=== PATIENT | female | born 1970 | race Caucasian/White ===

== ENCOUNTER → 2017-07-16 | Outpatient (CLI) | payer BC ==
[~2017-07-16] MED LIST: IOHEXOL 240 MG/ML 50ML VIAL. ONE; IOHEXOL 300 MG/ML 75 ML VIAL. IV ONE
[2017-07-16 08:50] LABS: ALBUMIN 3.7 g/dL (3.4-5.0); CALCIUM 9.3 mg/dL (8.5-10.1); CREATININE 0.9 mg/dL (0.6-1.0); GFR 67.4; POTASSIUM 4.2 mmol/L (3.5-5.1); TOTAL BILIRUBIN 0.3 mg/dL (0.2-1.0); TOTAL PROTEIN 7.4 g/dL (6.4-8.2)
[2017-07-16 09:03] LABS: BASO % 0 % (0-3); EOS % 0 % (0-3); HEMATOCRIT 43.2 % (36.0-47.0); HEMOGLOBIN 14.9 g/dL (12.0-15.5); LYMPH % 13 % (24-48); MEAN CORPUSCULAR HEMOGLOBIN 31 pg (25-35); MEAN CORPUSCULAR HGB CONC 34 g/dL (31-37); MEAN CORPUSCULAR VOLUME 90 fL (79-100); MONO # 0.3 x10^3/uL (0.0-1.1); MONO % 4 % (0-9); NEUT # 6.9 x10^3uL (1.8-7.7); NEUT % 84 % (31-73); PLATELET COUNT 323 x10^3/uL (140-400); RED BLOOD COUNT 4.79 x10^6/uL (3.50-5.40); RED CELL DISTRIBUTION WIDTH 13.4 % (11.5-14.5); WHITE BLOOD COUNT 8.3 x10^3/uL (4.0-11.0)
--- NOTE | 2017-07-16 10:09 | RAD ---
INDICATION: BRAIN MASS, STAGING COMPARISON: None. TECHNIQUE: Axial CT images were obtained through the chest, abdomen and pelvis with intravenous contrast. FINDINGS: Chest: Sub-4 mm nodule left lung base. Mild linear opacities lower lungs could be scarring or atelectasis. There is also a suspected sub-4 mm nodule right upper lung. There are couple of additional sub-4 mm right lower lung nodules. There is some motion which obscures portions of the thoracic aorta. The ascending thoracic aorta measures up to approximately 3.5 cm with descending measuring approximately 2 cm. Abdomen and pelvis: No abdominal aortic aneurysm. No intrahepatic bile duct dilation or definite mass. Small fat-containing umbilical hernia. No peripancreatic edema. Spleen unremarkable. No hydronephrosis. Urinary bladder is partially distended at time of exam. Uterus is visualized. Appendix does not appear grossly inflamed. No dilated loops of bowel suggest obstruction. Mild scoliotic curvature of the spine with degenerative changes. This includes degenerative disc disease with disc protrusions and osteophyte formation as well as facet hypertrophy. IMPRESSION: No definite solid organ mass to suggest metastasis. Multiple tiny pulmonary nodules measuring less than 4 mm. This is a commonly seen finding but follow-up will be needed in a few months given the patient's history. PQRS Compliance Statement: One or more of the following individualized dose reduction techniques were utilized for this examination: 1. Automated exposure control 2. Adjustment of the mA and/or kV according to patient size 3. Use of iterative reconstruction technique
[2017-07-16 15:15] LABS: THYROID STIM HORMONE (TSH) 0.751 uIU/mL (0.358-3.740)
== END | disposition home or self-care (01) ==
LOC: CT 08:06
PROVIDERS: ATTEND Neurological Surgery
DX: Z01.818 Encounter for other preprocedural examination (principal); G93.9 Disorder of brain, unspecified; R91.8 Other nonspecific abnormal finding of lung field; K42.9 Umbilical hernia without obstruction or gangrene; N32.89 Other specified disorders of bladder; M41.80 Other forms of scoliosis, site unspecified; R79.89 Other specified abnormal findings of blood chemistry
CPT/HCPCS: 36415; 71260; 74177; 80053; 80061; 84443; 85025; Q9966; Q9967

== ENCOUNTER → 2017-08-11 | Outpatient (CLI) | payer BC ==
--- NOTE | 2017-08-11 11:23 | RAD ---
CT head without contrast History: Double vision for one week, brain tumor removed5 during 2017. Comparison: MR brain [facility] 07/21/2017. Procedure: Axial images are obtained of the head from the skull base through the vertex without IV contrast. One or more of the following individualized dose reduction techniques were utilized for the study: Automated exposure control Adjustment of mA and/or kV according to patient's size Use of iterative reconstruction technique. Findings: There has been interval left occipital craniectomy and mesh cranioplasty. Surgical bed demonstrates expected postoperative volume loss. Evaluation for residual mass is limited. No significant mass effect is seen. Superficial/posterior to the cranioplasty site, there is a collection of apparent CSF attenuation fluid measuring about 4 x 1.5 cm in maximum axial dimension. The lateral and third ventricles appear appropriate. There is mild enlargement of fourth ventricle, thought to be compensatory to the postoperative change. No mass-effect, midline shift, acute hemorrhage or obvious acute infarction is identified. Basilar cisterns are patent. Bone windows demonstrate no significant calvarial abnormality. The visualized paranasal sinuses appear clear. Impression: 1. Postoperative changes of the left posterior fossa with resection of cerebellar mass and left occipital craniectomy and mesh cranioplasty. 2. There is CSF attenuation fluid collection noted posterior to the cranioplasty mesh, nonspecific, but might represent pseudomeningocele. 3. No acute intracranial hemorrhage is identified.
== END | disposition home or self-care (01) ==
LOC: CT 10:28
PROVIDERS: ATTEND Neurological Surgery
DX: H53.2 Diplopia (principal); G93.9 Disorder of brain, unspecified; Z98.890 Other specified postprocedural states; Z85.841 Personal history of malignant neoplasm of brain
CPT/HCPCS: 70450

== ENCOUNTER 2017-08-28 11:34 | Emergency (ER) | payer BC ==
[2017-08-28] MEDS ORDERED: IV NORMAL SALINE 1,000ML 1,000 ML IV ONE (11:45)
[2017-08-28 11:52] VITALS: BP 120/82
[2017-08-28] MEDS ORDERED: IOHEXOL 300 MG/ML 75 ML VIAL. IV ONE (12:00)
--- NOTE | 2017-08-28 12:28 | RAD ---
EXAM: CT ANGIOGRAPHY OF THE CHEST WITH AND WITHOUT INTRAVENOUS CONTRAST. HISTORY: Shortness of breath. TECHNIQUE: Computed tomographic angiography of the chest was performed before and after the intravenous administration of 75 mL Omnipaque 350. 3-D maximum intensity projections were also performed. COMPARISON: 07/16/2017. FINDINGS: Images of the upper abdomen reveal no acute abnormality. Bone windows reveal no suspicious lesions. There are small to moderately sized pulmonary emboli within all lobes except the left lower lobe. The main pulmonary artery is not enlarged. There is no aortic dissection or aneurysm. There are no pathologically enlarged mediastinal or axillary lymph nodes. There is a trace left pleural effusion. There is atelectasis in the left greater than right lung bases. The heart is not enlarged. IMPRESSION: 1. Small to moderately sized pulmonary emboli within all lobes except the left lower lobe. These findings were called to Dr. Resendez by Christiano Kyle on 08/28/2017 at 1220. *One or more of the following individualized dose reduction techniques were utilized for this examination: 1. Automated exposure control. 2. Adjustment of the mA and/or kV according to patient size. 3. Use of iterative reconstruction technique.
[2017-08-28] MEDS ORDERED: RIVA10TA PO (12:58)
--- NOTE | 2017-08-28 12:58 | PHYS DOC ---
Past History Past Medical History: Other Alcohol Use: None Drug Use: None Adult General Chief Complaint Chief Complaint: CHEST PAIN HPI HPI Patient is a 47 year old F who presents with chest pain that started 3 days ago. She was seen in the clinic 2 days ago and had labs drawn. The results came back today and she was found to have no elevated d-dimer. Her doctor sent her to the emergency room for further evaluation. She does have a relatively recent history of a brain tumor removal approximately 5 weeks ago. She has no other associated symptoms at this time. She has no other exacerbating or alleviating factors. Review of Systems Review of Systems Constitutional: Denies fever or chills [] Eyes: Denies change in visual acuity, redness, or eye pain [] HENT: Denies nasal congestion or sore throat [] Respiratory: Denies cough or shortness of breath [] Cardiovascular: No additional information not addressed in HPI [] GI: Denies abdominal pain, nausea, vomiting, bloody stools or diarrhea [] : Denies dysuria or hematuria [] Musculoskeletal: Denies back pain or joint pain [] Integument: Denies rash or skin lesions [] Neurologic: Denies headache, focal weakness or sensory changes [] Endocrine: Denies polyuria or polydipsia [] All other systems were reviewed and found to be within normal limits, except as documented in this note. Family History Family History No pertinent family medical history was reported Current Medications Current Medications Current medications reviewed Current Medications Medications (Trade) Dose Ordered Sig/Maria Guadalupe Start Time Stop Time Status Last Admin Dose Admin Iohexol (Omnipaque 300 Mg/ml) 75 ml 1X ONCE 08/28/17 12:00 08/28/17 12:01 DC Sodium Chloride 1,000 ml @ 1,000 mls/hr 1X ONCE 08/28/17 11:45 08/28/17 12:44 DC 08/28/17 11:45 1,000 MLS/HR Allergies Allergies Allergies Coded Allergies Type Severity Reaction Last Updated Verified Penicillins Allergy Unknown 07/16/17 Yes aspirin Allergy Unknown 07/16/17 Yes Physical Exam Physical Exam Constitutional: Well developed, well nourished, no acute distress, non-toxic appearance. [] HENT: Normocephalic, atraumatic, Eyes: EOMI, conjunctiva normal, no discharge. [] Neck: Normal range of motion, no tenderness, supple, no stridor. [] Cardiovascular:Heart rate regular rhythm, Lungs & Thorax: Bilateral breath sounds clear to auscultation [] Abdomen: Bowel sounds normal, soft, no tenderness, no masses, no pulsatile masses. [] Skin: Warm, dry, no erythema, no rash. [] Extremities: No tenderness, no cyanosis, no clubbing, ROM intact, no edema. [] Neurologic: Alert and oriented X 3, normal motor function, normal sensory function, no focal deficits noted. [] Psychologic: Affect normal, judgement normal, mood normal. [] Current Patient Data Vital Signs Vital Signs Date Time Temp Pulse Resp B/P (MAP) Pulse Ox O2 Delivery O2 Flow Rate FiO2 08/28/17 11:52 98.7 83 16 95 Room Air EKG EKG [] Radiology/Procedures Radiology/Procedures CT angiogram chest Impressions: Bilateral small scattered pulmonary embolisms Course & Med Decision Making Course & Med Decision Making Pertinent Labs and Imaging studies reviewed. 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 Education was provided on anticoagulation choices. Rebecca decided to choose Xarelto. She was given a dose of Lovenox as she was seen in the emergency department around 1300. Xarelto is twice a day when initiating. She plans to start her also this evening. She was strongly advised to return to the emergency room if she develops new or worsening symptoms. Dragon Disclaimer Dragon Disclaimer This electronic medical record was generated, in whole or in part, using a voice recognition dictation system. Departure Departure: Impression: Primary Impression: Pulmonary embolism Disposition: HOME, SELF-CARE Condition: STABLE Referrals: GURWINDER TITUS MD (PCP) Patient Instructions: Pulmonary Embolus Additional Instructions: Rebecca was seen in the emergency department for chest pain. She was found to have a pulmonary embolism on CT scan. She was started on Lovenox in the emergency room and was given a prescription for Xarelto. She is advised follow- up with her primary care doctor in the next 3-5 days for further management. Scripts Rivaroxaban (XARELTO) 10 Mg Tablet 1.5 TAB PO BID for 21 Days, #63 TAB Prov: NIKOLAS VERMA MD 08/28/17 Problem Qualifiers Primary Impression: Pulmonary embolism Pulmonary embolism type: other Chronicity: acute Acute cor pulmonale presence: without acute cor pulmonale Qualified Codes: I26.99 - Other pulmonary embolism without acute cor pulmonale NIKOLAS VERMA MD Aug 28, 2017 12:58
[2017-08-28] MEDS ORDERED: ENOXAPARIN ** NOTE DOSE ** SYRINGE SQ ONE (13:15)
== END 2017-08-28 13:26 | disposition home or self-care (01) ==
LOC: ER 11:34
DX: I26.99 Other pulmonary embolism without acute cor pulmonale (principal); Z88.0 Allergy status to penicillin; Z88.6 Allergy status to analgesic agent
CPT/HCPCS: 71275; 96360; 96372; 99284; J1650; J7030

== ENCOUNTER → 2019-04-05 | Outpatient (CLI) | payer BC ==
[~2019-04-05] MED LIST changes: -IOHEXOL 240 MG/ML 50ML VIAL. ONE; -IOHEXOL 300 MG/ML 75 ML VIAL. IV ONE; +RIVA10TA PO
--- NOTE | 2019-04-12 19:17 | RAD ---
DATE: 04/05/2019 EXAM: MAMMO RUDDY SCREENING BILATERAL HISTORY: Routine screening COMPARISON: 01/30/2012 mammographic exam performed at an outside facility This study was interpreted with the benefit of Computerized Aided Detection (CAD). Breast Density: SCATTERED The breast parenchyma shows scattered fibroglandular densities. Breast parenchyma level B. FINDINGS: No mass or distortion in the interval. No suspicious calcification. IMPRESSION: Stable BI-RADS CATEGORY: 1 NEGATIVE RECOMMENDED FOLLOW-UP: 12M 12 MONTH FOLLOW-UP PQRS compliance statement: Patient information was entered into a reminder system with a target due date in one year for the next mammogram. Mammography is a sensitive method for finding small breast cancers, but it does not detect them all and is not a substitute for careful clinical examination. A negative mammogram does not negate a clinically suspicious finding and should not result in delay in biopsying a clinically suspicious abnormality. "Our facility is accredited by the [employer] Mammography [employer]."
== END | disposition home or self-care (01) ==
LOC: MAMMO 08:51
PROVIDERS: ATTEND Family Medicine
DX: Z12.31 Encounter for screening mammogram for malignant neoplasm of breast (principal)
CPT/HCPCS: 77063; 77067

== ENCOUNTER 2020-08-20 20:16 | Emergency (ER) | payer BC ==
[~2020-08-20] VITALS: Ht 167.6 cm; Wt 100.0 kg
--- NOTE | 2020-08-20 20:35 | PHYS DOC ---
Past History Past Medical History: Cancer, Pneumonia, Other Past Medical History Brain surgery- cancer 3yrs ago [facility] Pulmonary embolism- 3 yrs ago [facility] Oncology follow at [facility] Past Surgical History: Cancer Surgery Alcohol Use: None Drug Use: None General Adult HPI: HPI: ".. the last three days.. I been getting more more short of breath. Activity seems to make it worse. I am worried because previously 3 years ago I had a large pulmonary embolism after cerebral mass removal... And I was also exposed to Covid 2 weeks ago at a friend and family gathering. " Patient is a 50 year old female who presents with above hx and complaints of increased dyspnea. Patient states after treatment for her pulmonary illness from 3 years ago has not had further anticoagulation. Patient states they felt that the pulmonary labs are resulted because of brain surgery for a mass in her cerebellar area. Patient had surgery at [facility]. But currently follows with [facility]. No recent travel. No specific ill contacts. 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 No fellow coworkers are currently ill. No family members are ill at home. Patient did get flu vaccination. She has not been able to get Covid vaccination as yet. No prior history of coagulopathy with patient and family members. Review of Systems: Review of Systems: Constitutional: Denies fever or chills Eyes: Denies change in visual acuity HENT: Denies nasal congestion or sore throat Respiratory: Complains of shortness of breath Cardiovascular: Denies chest pain or edema GI: Denies abdominal pain, nausea, vomiting, bloody stools or diarrhea : Denies dysuria Musculoskeletal: Denies back pain or joint pain Integument: Denies rash Neurologic: Denies headache, focal weakness or sensory changes Endocrine: Denies polyuria or polydipsia Lymphatic: Denies swollen glands Psychiatric: Denies depression or anxiety Family History: Family History: Noncontributory to presentation Current Medications: Current Meds: See nursing for home meds Allergies: Allergies: Allergies Coded Allergies Type Severity Reaction Last Updated Verified Penicillins Allergy Unknown 07/16/17 Yes aspirin Allergy Unknown 07/16/17 Yes Physical Exam: PE: Constitutional: no acute distress, non-toxic appearance. [] HENT: Normocephalic, atraumatic, bilateral external ears normal, oropharynx moist, no oral exudates, nose normal. [] Eyes: PERRLA, EOMI, conjunctiva normal, no discharge. [] Neck: Normal range of motion, no tenderness, supple, no stridor. [] Cardiovascular: Tachycardia heart rate regular rhythm, no murmur [] Lungs & Thorax: Bilateral breath sounds equal at apex, some basilar crackles on left lower on auscultation [] Abdomen: Bowel sounds normal, soft, no tenderness, no masses, no pulsatile masses. Obese. Skin: Warm, dry, no erythema, no rash. [] Back: No tenderness, no CVA tenderness. [] Extremities: No tenderness, no cyanosis, no clubbing, ROM intact, no edema. No cording appreciated Neurologic: Alert and oriented X 3, normal motor function, normal sensory function, no focal deficits noted. [] Psychologic: Affect anxious, judgement normal, mood normal. [] EKG: EKG: My interpretation EKG shows a sinus rhythm at 77 bpm. No acute morphology. Mild leftward axis. [] Radiology/Procedures: Radiology/Procedures: [][place] [address] IMAGING REPORT Signed PATIENT: HUDSON ROJAS ACCOUNT: [id number] : 1970 LOCATION: ER AGE: 50 SEX: F EXAM STATUS: REG ER ORD. PHYSICIAN: GERRY CONNORS MD REASON: dyspnea Omni 350 100cc PROCEDURE: CT ANGIOGRAPHY CHEST CTA Chest with contrast: Clinical History: Reason: dyspnea Omni 350 100cc / Spl. Instructions: / History: Shortness of breath. Axial helical images of the chest were obtained after the administration of 100 cc of IV Omni 350 and timed appropriately for a pulmonary arterial study. Conventional axial reconstruction was performed in addition to coronal, sagittal and bilateral oblique MIP (maximum intensity projection). This study was ordered to detect possible pulmonary embolism. There are no filling defects to suggest pulmonary embolism. There is patchy groundglass opacities in the mid and lower lungs left worse than right. There is no mediastinal or hilar lymphadenopathy. The thoracic aorta appears normal. Impression: 1. No evidence of pulmonary embolism. 2. Moderate bilateral infiltrates left worse right likely atypical pneumonia. End impression PQRS Compliance Statement: One or more of the following individualized dose reduction techniques were utilized for this examination: 1. Automated exposure control 2. Adjustment of the mA and/or kV according to patient size 3. Use of iterative reconstruction technique Electronically signed by: Boubacar Kaba III, MD (08/20/2020 11:15 PM) [facility] DICTATED AND SIGNED BY: BOUBACAR KABA III, MD DATE: 08/20/20 [id number] CC: GERRY CONNORS MD; GURWINDER TITUS MD ~MTH0 0 Heart Score: HEART Score for Chest Pain: HEART Score for Chest Pain Response (Comments) Value History Slighlty/Non-Suspicious 0 ECG Normal 0 Age >45 - < 65 1 Risk Factors 1 or 2 Risk Factors 1 Troponin < Normal Limit 0 Total 2 Risk Factors: Risk Factors: DM, Current or recent (<one month) smoker, HTN, HLP, family history of CAD, obesity. Risk Scores: Score 0 - 3: 2.5% MACE over next 6 weeks - Discharge Home Score 4 - 6: 20.3% MACE over next 6 weeks - Admit for Clinical Observation Score 7 - 10: 72.7% MACE over next 6 weeks - Early Invasive Strategies Course & Med Decision Making: Course & Med Decision Making Pertinent Labs and Imaging studies reviewed. (See chart for details) Patient take Eliquis 5 mg twice a day. Patient use MDI 2 puffs 4 times a day. Patient to take Zithromax 250 mg a day twice a day. Patient check her sats. Patient practice deep breathing and coughing. Patient follow-up primary care. May need home oxygen , to review this with your primary care. Return if any concerns. Patient warned that if sats drop further she will need home oxygen or admission. Self isolate. Follow-up Covid results. Impression: 1. Complaints of Dyspnea 2. Viral syndrome 3. Suspect COVID [] Dragon Disclaimer: Dragon Disclaimer: This electronic medical record was generated, in whole or in part, using a voice recognition dictation system. Departure Departure: Referrals: GURWINDER TITUS MD (PCP) Scripts Azithromycin (ZITHROMAX) 250 Mg Tablet 250 MG PO DAILY for ANTI-BIOTIC for 5 Days, #5 TAB 0 Refills Prov: GERRY CONNORS MD 08/21/20 Apixaban (ELIQUIS) 5 Mg Tablet 5 MG PO BID for hx dvt, pe for 10 Days, #20 TAB Prov: GERRY CONNORS MD 08/21/20 Dragon Disclaimer This chart was dictated in whole or in part using Voice Recognition software in a busy, high-work load, and often noisy Emergency Department environment. It may contain unintended and wholly unrecognized errors or omissions. Dragon Disclaimer This chart was dictated in whole or in part using Voice Recognition software in a busy, high-work load, and often noisy Emergency Department environment. It may contain unintended and wholly unrecognized errors or omissions. GERRY CONNORS MD Aug 20, 2020 20:35
[2020-08-20] MEDS ORDERED: IV RINGERS SOLUTION,LACTATED 1,000 ML IV SCH (21:00)
[2020-08-20] MEDS ORDERED: IOHEXOL 350 MG/ML 100 ML VIAL. IV ONE (21:15)
[2020-08-20] MEDS ORDERED: ALBUTEROL SULFATE 8GM INHALER. INH ONE (21:30)
[2020-08-20] MEDS ORDERED: predniSONE 10 MG TABLET PO ONE (21:30)
[2020-08-20 22:07] LABS: CALCIUM 8.7 mg/dL (8.5-10.1); CREATININE 0.9 mg/dL (0.6-1.0); GFR 66.5; POTASSIUM 3.4 mmol/L (3.5-5.1)
[2020-08-20 22:08] LABS: BASO % 0 % (0-3); EOS % 0 % (0-3); HEMATOCRIT 38.4 % (36.0-47.0); HEMOGLOBIN 12.6 g/dL (12.0-15.5); LYMPH # 0.9 x10^3/uL (1.0-4.8); LYMPH % 24 % (24-48); MEAN CORPUSCULAR HEMOGLOBIN 30 pg (25-35); MEAN CORPUSCULAR HGB CONC 33 g/dL (31-37); MEAN CORPUSCULAR VOLUME 92 fL (79-100); MONO # 0.2 x10^3/uL (0.0-1.1); MONO % 5 % (0-9); NEUT # 2.6 x10^3uL (1.8-7.7); NEUT % 71 % (31-73); PLATELET COUNT 235 x10^3/uL (140-400); RED BLOOD COUNT 4.19 x10^6/uL (3.50-5.40); RED CELL DISTRIBUTION WIDTH 14.1 % (11.5-14.5); WHITE BLOOD COUNT 3.7 x10^3/uL (4.0-11.0)
[2020-08-20 22:19] LABS: ALBUMIN 3.4 g/dL (3.4-5.0); DIRECT BILIRUBIN 0.1 mg/dL (0.0-0.2); MAGNESIUM 2.1 mg/dL (1.8-2.4); TOTAL BILIRUBIN 0.3 mg/dL (0.2-1.0); TOTAL PROTEIN 6.8 g/dL (6.4-8.2)
--- NOTE | 2020-08-20 22:32 | EKG ---
[address] [address] Test Date: 2020-08-20 Test Time: 21:11:37 Pat Name: HUDSON ROJAS Department: Room: Gender: F Service Team Leader: : 1970 Requested By: GERRY CONNORS Order Number: [id number] Reading MD: Measurements Intervals Cosmos Rate: 77 P: 21 SD: 148 QRS: -1 QRSD: 82 T: 4 QT: 376 QTc: 427 Interpretive Statements SINUS RHYTHM LEFTWARD AXIS OTHERWISE NORMAL ECG RI6.02 No previous ECG available for comparison
--- NOTE | 2020-08-20 23:17 | RAD ---
CTA Chest with contrast: Clinical History: Reason: dyspnea Omni 350 100cc / Spl. Instructions: / History: Shortness of breat h. Axial helical images of the chest were obtained after the administration of 100 cc of IV Omni 350 and timed appropriately for a pulmonary arterial study. Conventional axial reconstruction was performed in addition to coronal, sagittal and bilateral oblique MIP (maximum intensity projection). This ramesh dy was ordered to detect possible pulmonary embolism. There are no filling defects to suggest pulmonary embolism. There is patchy groundglass opacities in the mid and lower lungs left worse than right. There is no mediastinal or hilar lymphadenopathy. The thoracic aorta appears normal. Impression: 1. No evidence of pulmonary embolism. 2. Moderate bilateral infiltrates left worse right likely atypical pneumonia. End impression PQRS Compliance Statement: One or more of the following individualized dose reduction techniques were utilized for this examinat ion: 1. Automated exposure control 2. Adjustment of the mA and/or kV according to patient size 3. Use of iterative reconstruction technique Electronically signed by: Ramez Correia III, MD (08/20/2020 11:15 PM) [facility]
--- NOTE | 2020-08-20 23:23 | RAD ---
XR CHEST 1V Clinical History: Reason: dyspnea, exp. COVID / Spl. Instructions: / History: Technique: AP view of the chest was obtained at 08/20/2020 9:26 PM. Comparison: None. Findings: The cardiomediastinal silhouette is normal. The pulmonary vasculature is normal. There is patchy opac ity in the mid and lower lungs left more than right. Impression: Bilateral infiltrates likely atypical pneumonia. Electronically signed by: Ramez Correia III, MD (08/20/2020 11:21 PM) [facility]
[2020-08-20] MEDS ORDERED: AZITHROMYCIN 250 MG TABLET. PO ONE (23:45)
[2020-08-20 23:59] LABS: AMPHETAMINE/METHAMPHETAMINE NEG (NEG); BARBITURATES NEG (NEG); BENZODIAZEPINES NEG (NEG); CANNABINOIDS NEG (NEG); COCAINE NEG (NEG); METHADONE NEG (NEG); OPIATES NEG (NEG); PHENCYCLIDINE NEG (NEG)
[2020-08-21] MEDS ORDERED: APIXABAN 5 MG TABLET. PO ONE
[2020-08-21 00:06] LABS: BACTERIA,URINE 0 /HPF (0-FEW); BILIRUBIN,URINE NEG (NEG); CLARITY,URINE CLEAR; COLOR,URINE YELLOW; GLUCOSE,URINE NEG (NEG); NITRITE,URINE NEG (NEG); RBC,URINE 0 /HPF (0-2); SQUAMOUS EPITHELIAL CELL,UR OCC /LPF; UROBILINOGEN,URINE 0.2 mg/dL (0.2 mg/dL); WBC,URINE OCC /HPF (0-4)
[2020-08-21] MEDS ORDERED: APIX5TAB3 PO (00:07)
[2020-08-21] MEDS ORDERED: AZIT250T PO (00:07)
[2020-08-21 01:00] VITALS: BP 124/71
[2020-08-21] MEDS ORDERED: APIXABAN 5 MG TABLET. PO SCH (09:00)
[2020-08-22 10:40] LABS: THYROID STIM HORMONE (TSH) 1.705 uIU/mL (0.358-3.740)
[2020-08-27] MEDS ORDERED: APIXABAN 5 MG TABLET. PO SCH (21:00)
== END 2020-08-21 01:00 | disposition home or self-care (01) ==
LOC: ER 20:16
DX: U07.1 COVID-19 (principal); B34.9 Viral infection, unspecified; Z86.711 Personal history of pulmonary embolism; Z88.0 Allergy status to penicillin; Z88.6 Allergy status to analgesic agent
CPT/HCPCS: 36415; 71045; 71275; 80048; 80061; 80076; 80307; 81001; 82550; 83690; 83735; 83880; 84443; 84484; 84702; 85025; 85379; 85610; 85730; 93005; 94640; 96360; 96361; 99285; C9803; J7120; J7512; Q9967; U0003; 96374; 94664